=== PATIENT | female | born 2000 | race Caucasian/White ===

== ENCOUNTER 2019-09-17 14:03 | Emergency (ER) | payer OTHER ==
[~2019-09-17] VITALS: Ht 152.4 cm; Wt 113.4 kg
== END 2019-09-17 17:20 | disposition home or self-care (01) ==
LOC: ED 14:03
DX: S93.401A Sprain of unspecified ligament of right ankle, initial encounter (principal); S40.012A Contusion of left shoulder, initial encounter; Z91.013 Allergy to seafood; V89.2XXA Person injured in unspecified motor-vehicle accident, traffic, initial encounter; Y93.I9 Activity, other involving external motion; Y92.488 Other paved roadways as the place of occurrence of the external cause; Y99.8 Other external cause status